=== PATIENT | female | born 1930 | race Caucasian/White ===

== ENCOUNTER 2018-06-21 20:04 | Day surgery (SDC) | payer MEDICARE, OTHER ==
[~2018-06-21] VITALS: Ht 165.1 cm; Wt 42.0 kg
[2018-06-21 16:11] VITALS: BP 98/52
[~2018-06-21 20:04] MED LIST: ACET-1757 PO; ACET-709 PO; ALPR0.254 PO; AMPI2VIA IV; ASCO100T5 PO; CALC-557 PO; CALC1TAB62 PO; CEPH-368 PO; CEPH-376 PO; CHOL20002 PO; CIPR500T87 PO; CYAN25009 PO; DEXAMETHASONE 4 MG/ML, 1ML ONE; DEXT15DR5 OP; DIPH1TAB PO; DIPH1TAB6 PO; DIPH25CA61 PO; DIPHENHYDRAMINE 50 MG/ML, 1ML IVPush PRN; FAMO20TA7 PO; FENT1PAT77 TP; FENT1PAT9 TD; FENTANYL PF 100 MCG/2ML IV PRN; FLUC100T4 PO; FLUC200T PO; FOLI0.4T2 PO; FOLIC ACID PO; HALOPERIDOL 5 MG/ML IV PRN; HEPA500024 SQ; HYDR-3237 PO; HYDR100V IV; HYDROmorphone 2 MG/ML, 1ML IVPush PRN; LEVO25TA2 PO; LEVO25TA4 PO; LOPE2CAP PO; MAGN400T7 PO; MAGNESIUM PO; MECL12.52 PO; MELO15TA24 PO; MELO15TA6 PO; MEPERIDINE/PF 25MG/0.5ML IVPush PRN; METR-90 PO; METR500T PO; MV-M1TAB35 PO; ONDA4AMP IV; ONDA4TAB12 PO; ONDANSETRON 2MG/ML, 2ML ONE; OXYcodone 5 MG/5 ML ORAL.SOL UDC PO PRN; PLEASE ENTER HEIGHT AND WEIGHT MC SCH; POLY454P4 PO; PRED10TA PO; PRED5TAB PO; SERT50TA28 PO; VITAMIN C GUMMY PO; hydrALAzine 20 MG/ML, 1ML IV PRN
[2018-06-21] MEDS ORDERED: ACETAMINOPHEN 325 MG TABLET PO PRN (21:00)
[2018-06-21] MEDS ORDERED: ONDANSETRON 2MG/ML, 2ML IV PRN (21:00)
[2018-06-21] MEDS ORDERED: LACTATED RINGERS 1,000 ML IV SCH (21:00)
== END 2018-06-21 20:49 | disposition home or self-care (01) ==
LOC: OUT 20:04 → 4NOR 20:21 → OUT 20:49
PROVIDERS: ATTEND Urology
DX: N13.30 Unspecified hydronephrosis (principal); N30.90 Cystitis, unspecified without hematuria
CPT/HCPCS: 52332; 74018; 76000; C2617; J1100; J2405; G0378

== ENCOUNTER 2019-05-24 23:29 | Inpatient (IN) | payer MEDICARE, OTHER ==
[~2019-05-24] VITALS: Ht 165.1 cm; Wt 47.7 kg
[~2019-05-24 23:29] MED LIST changes: -ACET-1757 PO; +ACET-2065 PO; -DEXAMETHASONE 4 MG/ML, 1ML ONE; -DIPHENHYDRAMINE 50 MG/ML, 1ML IVPush PRN; -FENTANYL PF 100 MCG/2ML IV PRN; -HALOPERIDOL 5 MG/ML IV PRN; -HYDROmorphone 2 MG/ML, 1ML IVPush PRN; -MAGN400T7 PO; +MAGN400T9 PO; -MEPERIDINE/PF 25MG/0.5ML IVPush PRN; -ONDANSETRON 2MG/ML, 2ML ONE; -OXYcodone 5 MG/5 ML ORAL.SOL UDC PO PRN; -PLEASE ENTER HEIGHT AND WEIGHT MC SCH; -hydrALAzine 20 MG/ML, 1ML IV PRN
[2019-05-24] MEDS ORDERED: SODIUM CHLORIDE 0.9% 1,000 ML IV ONE (23:47)
--- NOTE | 2019-05-24 23:57 | NUR ---
PT TO CT VIA GURNEY AT THIS TIME. IV ACCESS ESTABLISHED.
[2019-05-25] MEDS ORDERED: MORPHINE SULFATE 4 MG/ML, 1ML IVPush PRN
[2019-05-25] MEDS ORDERED: SODIUM CHLORIDE FLUSH 10ML SYR IVF ONE
[2019-05-25] MEDS ORDERED: ONDANSETRON 2MG/ML, 2ML IVPush ONE
[2019-05-25 00:14] LABS: MEAN CORPUSCULAR HEMOGLOBIN 27.6 pg (27.0-34.8); MEAN CORPUSCULAR HGB CONC 32.4 g/dL (32.4-35.8); MEAN PLATELET VOLUME 8.3 fL (7.4-10.4); PLATELET COUNT 331 x10^3/uL (130-400); RED BLOOD COUNT 3.82 x10^6/uL (3.82-5.3); RED CELL DISTRIBUTION WIDTH 17.7 % (9.6-15.2)
[2019-05-25] MEDS ORDERED: MORPHINE SULFATE 4 MG/ML, 1ML ONE (00:15)
[2019-05-25] MEDS ORDERED: ONDANSETRON 2MG/ML, 2ML ONE ×2 (00:15→08:19)
[2019-05-25 00:16] LABS: ALANINE AMINOTRANSFERASE 15 U/L (12-78); ALBUMIN 3.7 g/dL (3.4-5.0); ANION GAP 9 mmol/L (5-15); CALCIUM 8.5 mg/dL (8.5-10.1); CHLORIDE 109 mmol/L (98-107); CREATININE 1.05 mg/dL (0.55-1.02)
[2019-05-25 00:19] LABS: ALKALINE PHOSPHATASE 87 U/L (45-117); BILIRUBIN,TOTAL 0.5 mg/dL (0.2-1.0); TOTAL PROTEIN 6.9 g/dL (6.4-8.2)
--- NOTE | 2019-05-25 00:28 | NUR ---
TASK RN: STRAIGHT CATH PERFORMED PER ORDER. WALKED TO LAB. PT. TOLERATED WELL. CONTINUOUS PULSE OX AND B/P MONITORS PLACED. VS UPDATED. CALL LIGHT IN REACH. ALL SATETY MEASUERS OSBERVED.
[2019-05-25 00:40] LABS: BASOPHILS # (AUTO) 0.06 x10^3/uL (0-0.1); BASOPHILS % (AUTO) 1 % (0-1); EOSINOPHILS # (AUTO) 0.02 x10^3/uL (0-0.4); EOSINOPHILS % (AUTO) 0 % (1-7); LYMPHOCYTES # (AUTO) 0.94 x10^3/uL (1-3.4); LYMPHOCYTES % (AUTO) 8 % (22-44); MD SCAN; MONOCYTES # (AUTO) 2.33 x10^3/uL (0.2-0.8); MONOCYTES % (AUTO) 20 % (2-9); NEUTROPHILS # (AUTO) 8.44 x10^3/uL (1.8-6.8); NEUTROPHILS % (AUTO) 72 % (42-75)
[2019-05-25 00:42] LABS: CULTURE INDICATED? YES; MICROSCOPIC INDICATED
[2019-05-25] MEDS ORDERED: CEFTRIAXONE PMX 1GM/50ML 50 ML IV ONE (01:00)
[2019-05-25] MEDS ORDERED: LINEZOLID PMX 600MG/300ML 300 ML IV SCH (01:00)
[2019-05-25] MEDS ORDERED: CEFTRIAXONE PMX 1GM/50ML 50 ML ONE (01:04)
--- NOTE | 2019-05-25 01:45 | NUR ---
PT RESTING IN [facility] AT THIS TIME; ROGER. REPORT OF PT TO DARIANA LIMA AT THIS TIME.
[2019-05-25] MEDS ORDERED: OMNIPAQUE 350 MG/ML, 100ML BOTTLE ONE (02:47)
--- NOTE | 2019-05-25 02:50 | NUR ---
PT BONNIE NOTIFIED OF PT ROOM ASSIGNMENT OVER TELEPHONE. ALL QUESTIONS ANSWERED AT THIS TIME.
[2019-05-25] MEDS ORDERED: BISACODYL 10 MG SUPP PR PRN (03:00)
[2019-05-25] MEDS ORDERED: ONDANSETRON 2MG/ML, 2ML IVPush PRN (03:00)
[2019-05-25] MEDS ORDERED: HYDROmorphone 2 MG/ML, 1ML IVPush PRN ×2 (03:00→08:30)
[2019-05-25] MEDS ORDERED: PHARMACY MAY ADJ FOR RENAL FX MC PRN (03:00)
[2019-05-25 03:11] VITALS: BP 114/55
[2019-05-25] MEDS: LEVOTHYROXINE 25 MCG TABLET PO SCH (05:51)
[2019-05-25] MEDS: LACTATED RINGERS 1,000 ML IV SCH ×2 (06:19→15:16)
[2019-05-25] MEDS ORDERED: MIDAZOLAM 1 MG/ML, 2ML ONE (07:10)
[2019-05-25] MEDS ORDERED: EPHEDRINE 50 MG/ML, 1ML ONE (07:40)
[2019-05-25] MEDS ORDERED: FENTANYL PF 100 MCG/2ML ONE (07:40)
[2019-05-25] MEDS ORDERED: SUCCINYLCHOLINE 20 MG/ML, 10ML ONE (07:40)
[2019-05-25] MEDS ORDERED: DEXAMETHASONE 4 MG/ML, 1ML ONE ×2 (08:19)
[2019-05-25] MEDS ORDERED: PROPOFOL 10 MG/ML, 20ML ONE (08:19)
[2019-05-25] MEDS ORDERED: EPHEDRINE 50 MG/ML, 1ML IVPush PRN (08:30)
[2019-05-25] MEDS ORDERED: PROMETHAZINE 25 MG/ML, 1ML IV PRN (08:30)
[2019-05-25] MEDS ORDERED: FENTANYL PF 100 MCG/2ML IV PRN (08:30)
[2019-05-25] MEDS ORDERED: MEPERIDINE/PF 25MG/ML,1ML IVPush PRN (08:30)
[2019-05-25] MEDS ORDERED: ONDANSETRON 2MG/ML, 2ML IV PRN (08:30)
[2019-05-25] MEDS ORDERED: ACETAMINOPHEN 325 MG TABLET PO PRN (08:30)
[2019-05-25] MEDS ORDERED: OXYcodone 5 MG/5 ML ORAL.SOL UDC PO PRN (08:30)
[2019-05-25] MEDS ORDERED: LABETALOL 5MG/ML, 20ML IV PRN (08:30)
[2019-05-25] MEDS ORDERED: hydrALAzine 20 MG/ML, 1ML IV PRN (08:30)
[2019-05-25] MEDS ORDERED: OMNIPAQUE 350 MG/ML, 50 ML BOTTLE ONE (08:32)
[2019-05-25] MEDS ORDERED: FAMOTIDINE 20 MG TABLET PO SCH (09:00)
[2019-05-25] MEDS ORDERED: SERTRALINE 50MG TABLET PO SCH (09:00)
[2019-05-25 09:30] VITALS: BP 107/64
[2019-05-25] MEDS: PIPERACILLIN/TAZO/PMX 3.375GM 50 ML IV SCH ×2 (12:30→12:51)
[2019-05-25 13:04] VITALS: BP 108/61
[2019-05-25] MEDS: LINEZOLID PMX 600MG/300ML 300 ML IV SCH (15:16)
[2019-05-25] MEDS: PIPERACILLIN/TAZO/PMX 2.25GM 50 ML IVPB SCH (18:44)
[2019-05-25 19:58] VITALS: BP_SYST 91; BP_SYST 97; BP_DIAS 47; BP_DIAS 48
[2019-05-25] MEDS: ACETAMINOPHEN 325 MG TABLET PO PRN (23:07)
[2019-05-26] MEDS: PIPERACILLIN/TAZO/PMX 2.25GM 50 ML IVPB SCH ×4 (01:11→18:27)
[2019-05-26 01:23] VITALS: BP 114/51
[2019-05-26] MEDS: LINEZOLID PMX 600MG/300ML 300 ML IV SCH ×2 (02:56→14:39)
[2019-05-26 05:45] LABS: MEAN CORPUSCULAR HEMOGLOBIN 28.4 pg (27.0-34.8); MEAN CORPUSCULAR HGB CONC 32.9 g/dL (32.4-35.8); MEAN CORPUSCULAR VOLUME 86.2 fL (80-100); MEAN PLATELET VOLUME 8.5 fL (7.4-10.4); PLATELET COUNT 266 x10^3/uL (130-400); RED BLOOD COUNT 3.21 x10^6/uL (3.82-5.3)
[2019-05-26 05:56] LABS: CHLORIDE 104 mmol/L (98-107)
[2019-05-26 06:03] LABS: ANION GAP 10 mmol/L (5-15); CALCIUM 7.5 mg/dL (8.5-10.1); CREATININE 1.18 mg/dL (0.55-1.02)
[2019-05-26] MEDS: LEVOTHYROXINE 25 MCG TABLET PO SCH (06:08)
[2019-05-26 06:16] LABS: BASOPHILS # (AUTO) 0.02 x10^3/uL (0-0.1); BASOPHILS % (AUTO) 0 % (0-1); EOSINOPHILS % (AUTO) 0 % (1-7); LYMPHOCYTES # (AUTO) 1.09 x10^3/uL (1-3.4); LYMPHOCYTES % (AUTO) 9 % (22-44); MD SCAN; MONOCYTES # (AUTO) 2.08 x10^3/uL (0.2-0.8); MONOCYTES % (AUTO) 17 % (2-9); NEUTROPHILS # (AUTO) 8.73 x10^3/uL (1.8-6.8); NEUTROPHILS % (AUTO) 73 % (42-75)
[2019-05-26] MEDS: LACTATED RINGERS 1,000 ML IV SCH ×2 (08:12→21:43)
[2019-05-26] MEDS: FAMOTIDINE 20 MG TABLET PO SCH (08:12)
[2019-05-26 09:19] VITALS: BP 96/54
[2019-05-26 13:05] VITALS: BP 115/62
[2019-05-26] MEDS: ACETAMINOPHEN 325 MG TABLET PO PRN (16:09)
[2019-05-26 19:45] VITALS: BP 119/65
[2019-05-26] MEDS: APAP/CODEINE 300/30MG TABLET PO PRN (20:31)
[2019-05-27] VITALS: BP 101/47
[2019-05-27] MEDS: PIPERACILLIN/TAZO/PMX 2.25GM 50 ML IVPB SCH ×4 (01:04→20:22)
[2019-05-27] MEDS: ACETAMINOPHEN 325 MG TABLET PO PRN (01:13)
[2019-05-27] MEDS: LINEZOLID PMX 600MG/300ML 300 ML IV SCH (03:22)
[2019-05-27] MEDS: LEVOTHYROXINE 25 MCG TABLET PO SCH (05:34)
[2019-05-27] MEDS: APAP/CODEINE 300/30MG TABLET PO PRN ×2 (05:35→13:18)
[2019-05-27] MEDS: FAMOTIDINE 20 MG TABLET PO SCH (07:28)
[2019-05-27 08:18] VITALS: BP 115/60
[2019-05-27] MEDS: LACTATED RINGERS 1,000 ML IV SCH (09:34)
[2019-05-27 09:35] LABS: MEAN CORPUSCULAR HEMOGLOBIN 27.7 pg (27.0-34.8); MEAN CORPUSCULAR HGB CONC 32.7 g/dL (32.4-35.8); MEAN CORPUSCULAR VOLUME 84.6 fL (80-100); MEAN PLATELET VOLUME 8.2 fL (7.4-10.4); PLATELET COUNT 288 x10^3/uL (130-400); RED BLOOD COUNT 3.61 x10^6/uL (3.82-5.3)
[2019-05-27 09:36] LABS: ANION GAP 7 mmol/L (5-15); CALCIUM 7.7 mg/dL (8.5-10.1); CHLORIDE 109 mmol/L (98-107); CREATININE 1.08 mg/dL (0.55-1.02)
[2019-05-27 10:10] LABS: MD YES
[2019-05-27 10:12] LABS: BAND#(MANUAL) 0.24 x10^3/uL; BANDS%(MANUAL) 3 % (0-7); EOS#(MANUAL) 0.16 x10^3/uL (0.0-0.4); EOS% (MANUAL) 2 % (1-7); LYMPH#(MANUAL) 1.74 x10^3/uL (1-3.4); LYMPHS% (MANUAL) 22 % (22-44); METAMYELOCYTES# (MANUAL) 0.32 x10^3/uL (0-0); METAMYELOCYTES% (MANUAL) 4 % (0-1); MONOS#(MANUAL) 1.74 x10^3/uL (0.3-2.7); MONOS% (MANUAL) 22 % (2-9); MYELOCYTES# (MANUAL) 0.08 x10^3/uL (0-0); MYELOCYTES% (MANUAL) 1 % (0-0); REACTIVE LYMPHS # (MANUAL) 0.08 x10^3/uL (0-0); REACTIVE LYMPHS % (MANUAL) 1 % (0-0); SEG#(MANUAL) 3.56 x10^3/uL (1.8-6.8); SEGS% (MANUAL) 45 % (42-75)
[2019-05-27 10:13] LABS: ANISOCYTOSIS 1+; POLYCHROMASIA 1+
[2019-05-27 10:14] LABS: <PLATELET ESTIMATE> ADEQUATE; <PLT MORPHOLOGY> NORMAL PLT MORPH
[2019-05-27 13:49] VITALS: BP 112/62
[2019-05-27] MEDS: LORazepam 2 MG/ML, 1ML IVPush PRN (15:25)
[2019-05-27] MEDS ORDERED: SERT50TA PO (18:28)
[2019-05-27] MEDS: SERTRALINE 50MG TABLET PO SCH (19:11)
[2019-05-27 19:38] VITALS: BP 129/74
[2019-05-27] MEDS: FENTANYL 25 MCG PATCH TD SCH (22:09)
[2019-05-27 23:31] VITALS: BP 144/74
[2019-05-28] VITALS: BP 144/74
[2019-05-28] MEDS: PIPERACILLIN/TAZO/PMX 2.25GM 50 ML IVPB SCH ×4 (01:00→20:21)
[2019-05-28 05:32] LABS: ANION GAP 3 mmol/L (5-15); CALCIUM 8.2 mg/dL (8.5-10.1); CHLORIDE 109 mmol/L (98-107); CREATININE 1.12 mg/dL (0.55-1.02)
[2019-05-28 05:48] LABS: MEAN CORPUSCULAR HEMOGLOBIN 27.9 pg (27.0-34.8); MEAN CORPUSCULAR HGB CONC 32.7 g/dL (32.4-35.8); MEAN CORPUSCULAR VOLUME 85.2 fL (80-100); MEAN PLATELET VOLUME 8.1 fL (7.4-10.4); PLATELET COUNT 303 x10^3/uL (130-400); RED BLOOD COUNT 3.67 x10^6/uL (3.82-5.3); RED CELL DISTRIBUTION WIDTH 17.4 % (9.6-15.2)
[2019-05-28] MEDS: LEVOTHYROXINE 25 MCG TABLET PO SCH (06:20)
[2019-05-28 06:45] LABS: MD YES
[2019-05-28 07:16] LABS: BAND#(MANUAL) 0.52 x10^3/uL; BANDS%(MANUAL) 5 % (0-7); BASOS#(MANUAL) 0.31 x10^3/uL (0-0.1); BASOS% (MANUAL) 3 % (0-1); LYMPH#(MANUAL) 2.47 x10^3/uL (1-3.4); LYMPHS% (MANUAL) 24 % (22-44); METAMYELOCYTES# (MANUAL) 0.21 x10^3/uL (0-0); METAMYELOCYTES% (MANUAL) 2 % (0-1); MONOS#(MANUAL) 2.16 x10^3/uL (0.3-2.7); MONOS% (MANUAL) 21 % (2-9); MYELOCYTES# (MANUAL) 0.31 x10^3/uL (0-0); MYELOCYTES% (MANUAL) 3 % (0-0); SEG#(MANUAL) 4.33 x10^3/uL (1.8-6.8); SEGS% (MANUAL) 42 % (42-75)
[2019-05-28 07:17] LABS: ANISOCYTOSIS 1+
[2019-05-28 07:18] LABS: <PLATELET ESTIMATE> ADEQUATE; <PLT MORPHOLOGY> NORMAL PLT MORPH
[2019-05-28 07:19] LABS: OVALOCYTES 2+; SCHISTOCYTES 1+
[2019-05-28 07:58] VITALS: BP 130/72
[2019-05-28] MEDS: SERTRALINE 50MG TABLET PO SCH (08:18)
[2019-05-28] MEDS: FAMOTIDINE 20 MG TABLET PO SCH (08:18)
[2019-05-28 12:33] VITALS: BP 113/60
[2019-05-28] MEDS: ACETAMINOPHEN 325 MG TABLET PO PRN (18:34)
[2019-05-28 18:42] VITALS: BP 147/70
[2019-05-29 02:10] VITALS: BP 148/75
[2019-05-29] MEDS: PIPERACILLIN/TAZO/PMX 2.25GM 50 ML IVPB SCH ×4 (02:16→20:20)
[2019-05-29 05:43] LABS: MEAN CORPUSCULAR HEMOGLOBIN 27.8 pg (27.0-34.8); MEAN CORPUSCULAR HGB CONC 32.2 g/dL (32.4-35.8); MEAN CORPUSCULAR VOLUME 86.4 fL (80-100); PLATELET COUNT 344 x10^3/uL (130-400); RED BLOOD COUNT 4.05 x10^6/uL (3.82-5.3); RED CELL DISTRIBUTION WIDTH 17.5 % (9.6-15.2)
[2019-05-29 05:48] LABS: ANION GAP 6 mmol/L (5-15); CALCIUM 8.3 mg/dL (8.5-10.1); CHLORIDE 106 mmol/L (98-107)
[2019-05-29 05:49] LABS: CREATININE 1.12 mg/dL (0.55-1.02)
[2019-05-29] MEDS: LEVOTHYROXINE 25 MCG TABLET PO SCH (05:52)
[2019-05-29 06:39] LABS: MD YES
[2019-05-29 06:42] LABS: ANISOCYTOSIS 1+; BAND#(MANUAL) 0.23 x10^3/uL; BANDS%(MANUAL) 2 % (0-7); EOS#(MANUAL) 0.11 x10^3/uL (0.0-0.4); EOS% (MANUAL) 1 % (1-7); LYMPH#(MANUAL) 2.85 x10^3/uL (1-3.4); LYMPHS% (MANUAL) 25 % (22-44); METAMYELOCYTES# (MANUAL) 0.11 x10^3/uL (0-0); METAMYELOCYTES% (MANUAL) 1 % (0-1); MONOS#(MANUAL) 2.28 x10^3/uL (0.3-2.7); MONOS% (MANUAL) 20 % (2-9); MYELOCYTES# (MANUAL) 0.23 x10^3/uL (0-0); MYELOCYTES% (MANUAL) 2 % (0-0); SEG#(MANUAL) 5.59 x10^3/uL (1.8-6.8); SEGS% (MANUAL) 49 % (42-75)
[2019-05-29 06:43] LABS: <PLATELET ESTIMATE> ADEQUATE; <PLT MORPHOLOGY> NORMAL PLT MORPH; OVALOCYTES 1+
[2019-05-29 07:18] VITALS: BP 141/91
[2019-05-29] MEDS: FAMOTIDINE 20 MG TABLET PO SCH (09:16)
[2019-05-29] MEDS: SERTRALINE 50MG TABLET PO SCH (09:16)
[2019-05-29] MEDS: ACETAMINOPHEN 325 MG TABLET PO PRN (09:40)
[2019-05-29] MEDS: CHOLESTYRAMINE LIGHT 4GM PACKET PO SCH ×3 (11:51→22:19)
[2019-05-29 13:59] VITALS: BP 122/65
[2019-05-29] MEDS: LORazepam 2 MG/ML, 1ML IVPush PRN (16:04)
[2019-05-29 20:33] VITALS: BP 120/64
[2019-05-30] MEDS: PIPERACILLIN/TAZO/PMX 2.25GM 50 ML IVPB SCH ×4 (02:13→20:58)
[2019-05-30 03:15] VITALS: BP 127/70
[2019-05-30] MEDS: LEVOTHYROXINE 25 MCG TABLET PO SCH (05:29)
[2019-05-30 05:49] LABS: ANION GAP 9 mmol/L (5-15); CHLORIDE 108 mmol/L (98-107)
[2019-05-30 05:51] LABS: CREATININE 1.05 mg/dL (0.55-1.02)
[2019-05-30 06:01] LABS: MEAN CORPUSCULAR HEMOGLOBIN 27.9 pg (27.0-34.8); MEAN CORPUSCULAR HGB CONC 33.1 g/dL (32.4-35.8); MEAN CORPUSCULAR VOLUME 84.4 fL (80-100); PLATELET COUNT 307 x10^3/uL (130-400); RED BLOOD COUNT 3.79 x10^6/uL (3.82-5.3)
[2019-05-30 06:17] LABS: MD YES
[2019-05-30 06:19] LABS: LYMPH#(MANUAL) 1.52 x10^3/uL (1-3.4); LYMPHS% (MANUAL) 13 % (22-44); MONOS#(MANUAL) 2.69 x10^3/uL (0.3-2.7); MONOS% (MANUAL) 23 % (2-9); SEG#(MANUAL) 7.49 x10^3/uL (1.8-6.8); SEGS% (MANUAL) 64 % (42-75)
[2019-05-30 06:20] LABS: ANISOCYTOSIS 1+
[2019-05-30 06:21] LABS: <PLATELET ESTIMATE> ADEQUATE; <PLT MORPHOLOGY> NORMAL PLT MORPH; OVALOCYTES 1+
[2019-05-30 06:41] VITALS: BP 115/72
[2019-05-30] MEDS: SERTRALINE 50MG TABLET PO SCH (08:31)
[2019-05-30] MEDS: FAMOTIDINE 10 MG TAB PO SCH (08:31)
[2019-05-30] MEDS: CHOLESTYRAMINE LIGHT 4GM PACKET PO SCH ×3 (08:31→20:59)
[2019-05-30] MEDS: HYDROcodone/APAP 5/325 TABLET PO PRN (10:14)
[2019-05-30] MEDS: FENTANYL 25 MCG PATCH TD SCH (11:50)
[2019-05-30 13:44] VITALS: BP 125/71
[2019-05-30] MEDS ORDERED: HEPARIN 5,000 UNITS/ML, 1ML SQ SCH (16:30)
[2019-05-30 19:58] VITALS: BP 132/85
[2019-05-30] MEDS: HEPARIN 5,000 UNITS/ML, 1ML SQ SCH (20:59)
[2019-05-31] MEDS: PIPERACILLIN/TAZO/PMX 2.25GM 50 ML IVPB SCH ×3 (02:04→14:38)
[2019-05-31] MEDS: LEVOTHYROXINE 25 MCG TABLET PO SCH (06:41)
[2019-05-31 07:05] VITALS: BP 110/64
[2019-05-31] MEDS: FAMOTIDINE 10 MG TAB PO SCH (08:24)
[2019-05-31] MEDS: SERTRALINE 50MG TABLET PO SCH (08:24)
[2019-05-31] MEDS: HEPARIN 5,000 UNITS/ML, 1ML SQ SCH (08:24)
[2019-05-31] MEDS: CHOLESTYRAMINE LIGHT 4GM PACKET PO SCH (08:25)
[2019-05-31 10:19] LABS: MEAN CORPUSCULAR HGB CONC 32.9 g/dL (32.4-35.8); MEAN CORPUSCULAR VOLUME 85.1 fL (80-100); MEAN PLATELET VOLUME 7.4 fL (7.4-10.4); PLATELET COUNT 284 x10^3/uL (130-400)
[2019-05-31 10:28] LABS: ANION GAP 6 mmol/L (5-15); CALCIUM 7.7 mg/dL (8.5-10.1); CHLORIDE 109 mmol/L (98-107); CREATININE 1.22 mg/dL (0.55-1.02)
[2019-05-31 10:31] LABS: MD YES
[2019-05-31 10:32] LABS: BAND#(MANUAL) 0.28 x10^3/uL; BANDS%(MANUAL) 2 % (0-7); EOS#(MANUAL) 0.14 x10^3/uL (0.0-0.4); EOS% (MANUAL) 1 % (1-7); METAMYELOCYTES# (MANUAL) 0.14 x10^3/uL (0-0); METAMYELOCYTES% (MANUAL) 1 % (0-1)
[2019-05-31 10:34] LABS: ANISOCYTOSIS 1+; LYMPH#(MANUAL) 1.27 x10^3/uL (1-3.4); LYMPHS% (MANUAL) 9 % (22-44); MONOS#(MANUAL) 5.78 x10^3/uL (0.3-2.7); MONOS% (MANUAL) 41 % (2-9); OVALOCYTES 1+; SEG#(MANUAL) 6.49 x10^3/uL (1.8-6.8); SEGS% (MANUAL) 46 % (42-75)
[2019-05-31 10:35] LABS: <PLATELET ESTIMATE> ADEQUATE; <PLT MORPHOLOGY> NORMAL PLT MORPH
[2019-05-31 13:00] VITALS: BP 118/70
[2019-05-31] MEDS ORDERED: PIPE2.253 IV (14:21)
[2019-05-31] MEDS: HYDROcodone/APAP 5/325 TABLET PO PRN (14:38)
[2019-05-31] MEDS ORDERED: FLU VACC QS2019-20 36MOS UP/PF 0.5 ML IM-VACC ONE (15:00)
== END 2019-05-31 15:34 | DRG 659 ==
LOC: ED 05-25 00:05 → EDIP 05-25 01:46 → 3N 05-25 02:45 → 4NE 05-25 09:29
PROVIDERS: ADMIT Family Medicine; ATTEND Internal Medicine
PROC: 0TP98DZ Removal of Intraluminal Device from Ureter, Via Natural or Artificial Opening Endoscopic (ICD-10-PCS; 2019-05-25)
PROC: 0T9B70Z Drainage of Bladder with Drainage Device, Via Natural or Artificial Opening (ICD-10-PCS; 2019-05-25)
PROC: BT1D1ZZ Fluoroscopy of Right Kidney, Ureter and Bladder using Low Osmolar Contrast (ICD-10-PCS; 2019-05-25)
PROC: 0T768DZ Dilation of Right Ureter with Intraluminal Device, Via Natural or Artificial Opening Endoscopic (ICD-10-PCS; principal; 2019-05-25 07:15)
DX: T83.123A Displacement of other urinary stents, initial encounter (principal); A41.9 Sepsis, unspecified organism; N17.9 Acute kidney failure, unspecified; N13.6 Pyonephrosis; K91.2 Postsurgical malabsorption, not elsewhere classified; T83.113A Breakdown (mechanical) of other urinary stents, initial encounter; E03.9 Hypothyroidism, unspecified; F32.9 Major depressive disorder, single episode, unspecified; G89.29 Other chronic pain; H54.61 Unqualified visual loss, right eye, normal vision left eye; H91.90 Unspecified hearing loss, unspecified ear; J44.9 Chronic obstructive pulmonary disease, unspecified; Y83.8 Other surgical procedures as the cause of abnormal reaction of the patient, or of later complication, without mention of misadventure at the time of the procedure; K21.9 Gastro-esophageal reflux disease without esophagitis; K83.8 Other specified diseases of biliary tract; N18.9 Chronic kidney disease, unspecified; N30.80 Other cystitis without hematuria; Z82.49 Family history of ischemic heart disease and other diseases of the circulatory system; Z85.43 Personal history of malignant neoplasm of ovary; Z87.440 Personal history of urinary (tract) infections; Z90.710 Acquired absence of both cervix and uterus; Z90.49 Acquired absence of other specified parts of digestive tract; Z88.2 Allergy status to sulfonamides; Y92.098 Other place in other non-institutional residence as the place of occurrence of the external cause; Z79.899 Other long term (current) drug therapy
CPT/HCPCS: 36415; 74018; 74176; 74178; 74420; 80048; 80053; 81001; 83690; 85025; 87040; 87070; 87075; 87077; 87086; 87102; 87106; 87186; 87205; 90686; 99285; G0378; J0696; J1100; J1644; J2020; J2250; J2405; J2543; J2704; J3010; Q9967; C1758; C1769; C2617; J0330; J2060; J2270; J7030; J7120; J7512

== ENCOUNTER 2019-06-21 21:48 | Emergency (ER) | payer MEDICARE, OTHER ==
[~2019-06-21] VITALS: Ht 162.6 cm; Wt 39.5 kg
[~2019-06-21 21:48] MED LIST changes: +PIPE2.253 IV; +SERT50TA PO
--- NOTE | 2019-06-21 22:46 | NUR ---
Patient presents to ER c/o rash with possible UTI. Patient had a kidney stent placed in May then developed a UTI; she finished her course of antibiotics. [place] catheter in place since 06/17 for due to urine retention. Patient denies abd pain. Patient is in NAD. Respirations even and unlabored.
[2019-06-21 23:42] LABS: ALBUMIN 2.8 g/dL (3.4-5.0); ANION GAP 6 mmol/L (5-15); CALCIUM 8.3 mg/dL (8.5-10.1); CHLORIDE 107 mmol/L (98-107)
[2019-06-21 23:46] LABS: ALANINE AMINOTRANSFERASE 8 U/L (12-78); ALKALINE PHOSPHATASE 56 U/L (45-117); BILIRUBIN,TOTAL 0.4 mg/dL (0.2-1.0); CREATININE 0.93 mg/dL (0.55-1.02); TOTAL PROTEIN 6.5 g/dL (6.4-8.2)
[2019-06-21 23:47] LABS: MEAN CORPUSCULAR HEMOGLOBIN 27.2 pg (27.0-34.8); MEAN CORPUSCULAR HGB CONC 32.8 g/dL (32.4-35.8); MEAN CORPUSCULAR VOLUME 83.1 fL (80-100); PLATELET COUNT 425 x10^3/uL (130-400); RED BLOOD COUNT 3.36 x10^6/uL (3.82-5.3); RED CELL DISTRIBUTION WIDTH 16.8 % (9.6-15.2)
[2019-06-21 23:48] LABS: MD YES
[2019-06-21 23:52] LABS: ANISOCYTOSIS 1+; BAND#(MANUAL) 0.07 x10^3/uL; BANDS%(MANUAL) 1 % (0-7); BASOS#(MANUAL) 0.07 x10^3/uL (0-0.1); BASOS% (MANUAL) 1 % (0-1); LYMPH#(MANUAL) 1.12 x10^3/uL (1-3.4); LYMPHS% (MANUAL) 17 % (22-44); MONOS#(MANUAL) 1.72 x10^3/uL (0.3-2.7); MONOS% (MANUAL) 26 % (2-9); SEG#(MANUAL) 3.63 x10^3/uL (1.8-6.8); SEGS% (MANUAL) 55 % (42-75)
[2019-06-21 23:53] LABS: HYPOCHROMIA 1+
[2019-06-21 23:54] LABS: <PLATELET ESTIMATE> INCREASED; <PLT MORPHOLOGY> NORMAL PLT MORPH; OVALOCYTES 1+
[2019-06-21 23:57] LABS: CULTURE INDICATED? YES; MICROSCOPIC INDICATED
[2019-06-22 00:08] VITALS: BP 103/49
== END 2019-06-22 01:01 | disposition home or self-care (01) ==
LOC: ED 06-22 00:04
DX: N30.01 Acute cystitis with hematuria (principal); L23.9 Allergic contact dermatitis, unspecified cause; L29.9 Pruritus, unspecified; E03.9 Hypothyroidism, unspecified; J44.9 Chronic obstructive pulmonary disease, unspecified; Z90.49 Acquired absence of other specified parts of digestive tract
CPT/HCPCS: 36415; 51702; 80053; 81001; 85025; 87077; 87086; 87106; 87186; 99283; 99284